=== PATIENT | female | born 1950 | race Caucasian/White ===

== ENCOUNTER 2021-03-20 16:33 | Inpatient (IN) | payer MEDICARE ==
[~2021-03-20] VITALS: Ht 172.7 cm; Wt 133.9 kg
[2021-03-20 19:13] LABS: BUN/CREATININE RATIO 39 (0-10)
[2021-03-20 20:12] LABS: HEMOGLOBIN 15.2 gm/dl (12.3-15.3); RED BLOOD COUNT 4.61 M/UL (4.00-5.10)
[2021-03-21] MEDS ORDERED: LISINOPRIL10 MG PO (12:02)
[2021-03-21] MEDS ORDERED: INVOKANA100 MG PO (12:02)
[2021-03-21] MEDS ORDERED: NADOLOL20 MG PO (12:03)
[2021-03-21] MEDS ORDERED: ZOCOR40 MG PO (12:03)
[2021-03-21] MEDS ORDERED: FAMOTIDINE20 MG PO (12:04)
[2021-03-21] MEDS ORDERED: VITAMIN D3250 MC2 PO (12:04)
[2021-03-21] MEDS ORDERED: VITAMIN A10000 UNI1 PO (12:05)
[2021-03-21] MEDS ORDERED: ELIQUIS5 MG PO (12:06)
[2021-03-21] MEDS ORDERED: DULCOLAX STOOL100 MG PO (12:06)
[2021-03-22 06:25] LABS: HEMOGLOBIN 15.9 gm/dl (12.3-15.3); RED BLOOD COUNT 4.68 M/UL (4.00-5.10); WHITE BLOOD COUNT 5.5 K/UL (4.5-11.0)
[2021-03-23 07:11] LABS: HEMOGLOBIN 16.4 gm/dl (12.3-15.3); RED BLOOD COUNT 4.96 M/UL (4.00-5.10); WHITE BLOOD COUNT 6.8 K/UL (4.5-11.0)
--- NOTE | 2021-03-24 04:30 | NUR ---
Family notified of patient transfer from [id number] to [id number]. Informed family patient condition change and the reason for transfer to higher level of care.
--- NOTE | 2021-03-24 04:35 | NUR ---
Patient condition change. Patient's heart rate 140-150's (SVT on monitor. Patient asymptomatic. MD notified. New orders for EKG, transfer to PCU and administer Adensoine 6mg one-time
[2021-03-24 07:18] LABS: HEMOGLOBIN 15.7 gm/dl (12.3-15.3); RED BLOOD COUNT 4.86 M/UL (4.00-5.10); WHITE BLOOD COUNT 6.6 K/UL (4.5-11.0)
[2021-03-25 03:42] LABS: RED BLOOD COUNT 4.24 M/UL (4.00-5.10); WHITE BLOOD COUNT 4.8 K/UL (4.5-11.0)
[2021-03-25 18:11] LABS: HEPARIN INDUCED PLATELET AB 0.124 OD (0.000-0.400)
[2021-03-26 03:18] LABS: HEMOGLOBIN 14.5 gm/dl (12.3-15.3); RED BLOOD COUNT 4.33 M/UL (4.00-5.10); WHITE BLOOD COUNT 5.7 K/UL (4.5-11.0)
[2021-03-27 03:50] LABS: HEMOGLOBIN 14.2 gm/dl (12.3-15.3); RED BLOOD COUNT 4.27 M/UL (4.00-5.10); WHITE BLOOD COUNT 4.7 K/UL (4.5-11.0)
[2021-03-28 04:11] LABS: HEMOGLOBIN 13.6 gm/dl (12.3-15.3); RED BLOOD COUNT 4.09 M/UL (4.00-5.10); WHITE BLOOD COUNT 3.6 K/UL (4.5-11.0)
[2021-03-29 03:22] LABS: HEMOGLOBIN 12.8 gm/dl (12.3-15.3); RED BLOOD COUNT 3.76 M/UL (4.00-5.10); WHITE BLOOD COUNT 3.2 K/UL (4.5-11.0)
[2021-03-29 04:26] LABS: BUN/CREATININE RATIO 40 (0-10)
[2021-03-30 03:49] LABS: HEMOGLOBIN 12.9 gm/dl (12.3-15.3); RED BLOOD COUNT 3.84 M/UL (4.00-5.10); WHITE BLOOD COUNT 2.9 K/UL (4.5-11.0)
--- NOTE | 2021-03-30 04:11 | NUR ---
DR MANCINI MADE AWARE OF PTS PLATLET COUNT.
[2021-03-30 04:24] LABS: BUN/CREATININE RATIO 35 (0-10)
[2021-03-31 04:56] LABS: HEMOGLOBIN 12.8 gm/dl (12.3-15.3); RED BLOOD COUNT 3.88 M/UL (4.00-5.10); WHITE BLOOD COUNT 3.4 K/UL (4.5-11.0)
[2021-03-31 06:06] LABS: BUN/CREATININE RATIO 34 (0-10)
[2021-03-31 06:09] LABS: HBSAG SCREEN Negative (Negative); HEP A AB, IGM Negative (Negative); HEP B CORE AB, IGM Negative (Negative); HEP C VIRUS AB <0.1 (0.0-0.9)
[2021-04-01 03:47] LABS: HEMOGLOBIN 12.6 gm/dl (12.3-15.3); RED BLOOD COUNT 3.79 M/UL (4.00-5.10); WHITE BLOOD COUNT 4.1 K/UL (4.5-11.0)
[2021-04-01 04:10] LABS: BUN/CREATININE RATIO 31 (0-10)
[2021-04-02 03:41] LABS: HEMOGLOBIN 12.6 gm/dl (12.3-15.3); RED BLOOD COUNT 3.81 M/UL (4.00-5.10); WHITE BLOOD COUNT 4.3 K/UL (4.5-11.0)
[2021-04-02 04:11] LABS: BUN/CREATININE RATIO 28 (0-10)
[2021-04-02] MEDS ORDERED: POLYETHYLENE GL17 GM PO (09:32)
[2021-04-02] MEDS ORDERED: ALDACTONE 25MG25 MG PO (09:32)
[2021-04-02] MEDS ORDERED: XIFAXAN 550 MG550 MG PO (09:32)
[2021-04-02] MEDS ORDERED: CHRONULAC20 GM/30 M PO (09:32)
[2021-04-02] MEDS ORDERED: FUROSEMIDE40 MG PO (09:32)
[2021-04-02] MEDS ORDERED: MIDODRINE HCL2.5 MG PO (09:32)
== END 2021-04-02 14:37 | disposition home health service (06) | DRG 432 ==
LOC: ER1 16:33 → CDU 03-21 04:14 → M/S 03-21 04:14 → PROG CARE 03-22 15:06 → M/S 03-22 15:06 → PROG CARE 03-24 05:09
PROVIDERS: Internal Medicine; Nurse Practitioner; ADMIT Internal Medicine
PROC: B24BZZ4 Ultrasonography of Heart with Aorta, Transesophageal (ICD-10-PCS; principal; 2021-03-22)
DX: K74.60 Unspecified cirrhosis of liver (principal); I81 Portal vein thrombosis; I50.33 Acute on chronic diastolic (congestive) heart failure; J18.9 Pneumonia, unspecified organism; K76.7 Hepatorenal syndrome; G92.8 Other toxic encephalopathy; K72.00 Acute and subacute hepatic failure without coma; J96.01 Acute respiratory failure with hypoxia; N17.0 Acute kidney failure with tubular necrosis; I47.1 Supraventricular tachycardia; J98.11 Atelectasis; R18.8 Other ascites; Z68.41 Body mass index [BMI] 40.0-44.9, adult; I11.0 Hypertensive heart disease with heart failure; R04.0 Epistaxis; D72.819 Decreased white blood cell count, unspecified; E66.01 Morbid (severe) obesity due to excess calories; Z20.822 Contact with and (suspected) exposure to COVID-19; E03.9 Hypothyroidism, unspecified; K59.00 Constipation, unspecified; I27.20 Pulmonary hypertension, unspecified; E86.0 Dehydration; E80.6 Other disorders of bilirubin metabolism; K76.0 Fatty (change of) liver, not elsewhere classified; Z90.49 Acquired absence of other specified parts of digestive tract; Z90.710 Acquired absence of both cervix and uterus; Z82.49 Family history of ischemic heart disease and other diseases of the circulatory system; Z90.89 Acquired absence of other organs; Z80.3 Family history of malignant neoplasm of breast; Z79.899 Other long term (current) drug therapy; Z79.52 Long term (current) use of systemic steroids; Z79.4 Long term (current) use of insulin; Z79.01 Long term (current) use of anticoagulants
CPT/HCPCS: ECHO; 36415; 36600; 51702; 71045; 76705; 80048; 80053; 80074; 81001; 82140; 82248; 82550; 82553; 82607; 82746; 82803; 82962; 83540; 83550; 83735; 83874; 83880; 84100; 84439; 84443; 84484; 85025; 85027; 85610; 86140; 87086; 93005; 93306; 93970; 94760; 97110-GP-CQ; 97116-GP-CQ; 97161; 97530-GP-CQ; 99285; A6212; G0378; J0153; J1335; J1650; J1940; J2270; J2354; J2405; J2765; P9047; U0002

== ENCOUNTER → 2021-04-14 | Outpatient (CLI) | payer MEDICARE ==
[~2021-04-14] MED LIST: ALDACTONE 25MG25 MG PO; CHRONULAC20 GM/30 M PO; DULCOLAX STOOL100 MG PO; ELIQUIS5 MG PO; FAMOTIDINE20 MG PO; FUROSEMIDE40 MG PO; INVOKANA100 MG PO; LISINOPRIL10 MG PO; MIDODRINE HCL2.5 MG PO; NADOLOL20 MG PO; POLYETHYLENE GL17 GM PO; VITAMIN A10000 UNI1 PO; VITAMIN D3250 MC2 PO; XIFAXAN 550 MG550 MG PO; ZOCOR40 MG PO
== END ==
LOC: EXRD 11:33
DX: R06.02 Shortness of breath (principal); R91.8 Other nonspecific abnormal finding of lung field
CPT/HCPCS: 71046

== ENCOUNTER 2021-04-27 17:33 | Emergency (ER) | payer MEDICARE ==
[2021-04-27 22:17] LABS: HEMOGLOBIN 15.5 gm/dl (12.3-15.3); RED BLOOD COUNT 4.51 M/UL (4.00-5.10)
[2021-04-27 22:43] LABS: BUN/CREATININE RATIO 25 (0-10)
[2021-04-28] MEDS ORDERED: KLOR-CON 1010 MEQ PO (01:42)
== END 2021-04-28 01:44 | disposition home or self-care (01) ==
LOC: ER1 17:33
PROVIDERS: Physician Assistant
DX: E87.6 Hypokalemia (principal); E78.5 Hyperlipidemia, unspecified; E11.9 Type 2 diabetes mellitus without complications; I10 Essential (primary) hypertension
CPT/HCPCS: 80053; 82550; 82553; 83735; 84484; 85025; 93005; 99285

== ENCOUNTER → 2021-08-19 | Outpatient (CLI) | payer MEDICARE ==
[~2021-08-19] MED LIST changes: +KLOR-CON 1010 MEQ PO
== END ==
LOC: LAB 11:48
DX: Z20.822 Contact with and (suspected) exposure to COVID-19 (principal)
CPT/HCPCS: U0003